=== PATIENT | male | born 1970 | race Caucasian/White ===

== ENCOUNTER 2022-06-30 04:22 | Emergency (ER) | payer MEDICARE, MEDICAID ==
[~2022-06-30] VITALS: Ht 180.3 cm; Wt 134.1 kg
[~2022-06-30 04:22] MED LIST: AZIT500T9 PO; CARV6.253 PO; CIME200T95 PO; CYCL-1 PO; FLUT1DIS4 INH; FURO40TA4 PO; IVAB5TAB PO; POTA-207 PO; SACU1TAB7 PO
[2022-06-30 04:25] VITALS: BP 105/56
[2022-06-30] MEDS ORDERED: AMOX500C2 PO (04:38)
[2022-06-30] MEDS ORDERED: acetaminophen 325mg tablet PO ONE (04:40)
[2022-06-30] MEDS ORDERED: amoxicillin 250mg capsule PO ONE (04:40)
[2022-06-30] MEDS ORDERED: ondansetron 4mg rapidly disintigrating tab PO ONE (04:40)
== END 2022-06-30 04:53 | disposition home or self-care (01) ==
LOC: ER 04:23
DX: K04.7 Periapical abscess without sinus (principal); G89.29 Other chronic pain; M54.9 Dorsalgia, unspecified; I11.9 Hypertensive heart disease without heart failure; Z88.1 Allergy status to other antibiotic agents; Z79.899 Other long term (current) drug therapy; Z88.5 Allergy status to narcotic agent
CPT/HCPCS: 99284